=== PATIENT | female | born 1965 | race Hispanic/Latino ===

== ENCOUNTER → 2019-01-17 | Outpatient (CLI) | payer OTHER | LOC: MAMMO 07:36 | PROVIDERS: ATTEND Family Medicine | DX: Z12.31 Encounter for screening mammogram for malignant neoplasm of breast (principal) | CPT/HCPCS: 77067 ==

== ENCOUNTER → 2019-02-14 | Outpatient (CLI) | payer OTHER ==
--- NOTE | 2019-02-14 10:03 | Diagnostic Imaging Report ---
TECHNIQUE: Magnetic resonance imaging of the [facility] KNEE was performed WITHOUT injected contrast. HISTORY: , Arthritis, pain RT KNEE MEDIAL MENISCUS TEAR COMPARISON: None available. FINDINGS: LIGAMENTS AND TENDONS: ACL: Intact, mild intrasubstance degeneration of the posterior fibers of the posterolateral band. PCL: Intact Collateral ligaments: Intact Iliotibial band: Unremarkable Popliteal tendon: Intrasubstance degeneration, mild attenuation, and contour irregularity of the intra-articular portion near the femoral insertion. Extensor mechanism: Intact JOINT: Menisci: Medial: Mild intrasubstance degeneration and free margin attenuation of the anterior horn near the tibial attachment. Lateral: Complex peripheral tearing with predominantly vertical component, a large bucket-handle type fragment flipped towards the intercondylar notch. Articular Cartilage: Medial Compartment: Low to intermediate grade erosions with fibrillation and high-grade fissuring. Lateral Compartment: Full-thickness erosions of the weightbearing cartilage. Patellofemoral Compartment: Low-grade erosion is with full-thickness fissures involving the inferior patellar cartilage. Joint Fluid: Synovitis with small nonspecific joint effusion. BONES: No focal or infiltrative bone marrow replacing abnormality. No acute fracture. Subtle subchondral bone marrow edema of the patella and lateral femoral condyle. Minimal patchy bone marrow edema within the lateral tibial plateau.. SOFT TISSUES: Otherwise, unremarkable. IMPRESSION: 1. 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 2. Mild reactive subchondral bone marrow edema, most notably adjacent to the lateral compartment and of the patella. 3. Reactive synovitis with associated small joint effusion. 4. Popliteal tendinosis. Signed by: Dr. Callum Horta D.O., M.M.M. on 02/14/2019 10:00 AM
== END ==
LOC: MRI 08:08
PROVIDERS: ATTEND Specialist
DX: S83.241A Other tear of medial meniscus, current injury, right knee, initial encounter (principal)

== ENCOUNTER → 2019-02-17 | Outpatient (CLI) | payer OTHER ==
--- NOTE | 2019-02-18 08:53 | Diagnostic Imaging Report ---
#[id number] - [id number] #UNILATERAL LEFT DIGITAL DIAGNOSTIC MAMMOGRAM WITH SPOT COMPRESSION AND MAGNIFICATION: 02/17/2019 Comparison is made to exams dated: 01/17/2019 mammogram - [facility] and 01/14/2018 mammogram - [facility]. Current study contains 4 films. There are scattered fibroglandular elements in the left breast. There are multiple areas of loosely grouped calcifications with none appearing more suspicious than the other. These are likely benign. Followup in 6 months is recommended to ascertain stability. IMPRESSION: PROBABLY BENIGN A follow-up mammogram in 6 months is recommended to demonstrate stability. The patient was notified of the need for followup. David Loving Jr., D.O. cw/:02/17/2019 14:44:17 Brim Plater: Annabelle MELÉNDEZ(R)(M), [facility] letter sent: Followup Recommended Mammogram BI-RADS: 3 Probably benign
== END ==
LOC: MAMMO 07:50
PROVIDERS: ATTEND Family Medicine
DX: R92.8 Other abnormal and inconclusive findings on diagnostic imaging of breast (principal)

== ENCOUNTER → 2019-09-23 | Outpatient (CLI) | payer OTHER | LOC: MAMMO 13:12 | PROVIDERS: ATTEND Family Medicine | DX: Z12.31 Encounter for screening mammogram for malignant neoplasm of breast (principal) ==

== ENCOUNTER → 2019-10-07 | Outpatient (CLI) | payer OTHER ==
--- NOTE | 2019-10-07 16:04 | Diagnostic Imaging Report ---
#[id number] - [id number] #UNILATERAL LEFT DIGITAL DIAGNOSTIC MAMMOGRAM WITH CAD SHORT-TERM FOLLOW-UP: 10/07/2019 Comparison is made to exams dated: 02/17/2019 mammogram, 01/17/2019 mammogram - [facility] and 01/14/2018 mammogram - [facility]. There are scattered fibroglandular elements in the left breast. Current study was also evaluated with a Computer Aided Detection (CAD) system. The amophous calcifications in the left breast appear unchanged from the prior exam. One additional 6 month follow up is suggested to check stability. If stable, follow up can be obtained on an annual basis. No new significant masses, calcifications, or other findings are seen in the breast. IMPRESSION: PROBABLY BENIGN A follow-up mammogram in 6 months is recommended to demonstrate stability. The patient has been or will be notified of the results. ALEENA TSAI M.D. kw/:10/07/2019 15:33:32 [employer]: Annabelle ARAGON)(Art), [facility] letter sent: Followup Recommended Mammogram BI-RADS: 3 Probably benign
== END ==
LOC: MAMMO 13:37
PROVIDERS: ATTEND Family Medicine
DX: R92.8 Other abnormal and inconclusive findings on diagnostic imaging of breast (principal)

== ENCOUNTER → 2021-07-17 | Outpatient (CLI) | payer OTHER | LOC: RAD 08:55 | PROVIDERS: ATTEND Student in an Organized Health Care Education/Training Program | DX: M25.551 Pain in right hip (principal); M25.561 Pain in right knee | CPT/HCPCS: 93971 ==